=== PATIENT | male | born 1990 | race Caucasian/White ===

== ENCOUNTER 2020-05-24 06:08 | Emergency (ER) | payer OTHER ==
[~2020-05-24] VITALS: Ht 175.3 cm; Wt 97.5 kg
[2020-05-24 06:15] VITALS: BP 151/94
--- NOTE | 2020-05-24 06:19 | NUR ---
PT AMBULATED TO BED 3 WITH STEADY GAIT
--- NOTE | 2020-05-24 06:20 | NUR ---
29 Y/O MALE C/O 5-6 EPISODES OF EMESIS 1 HR AGO THAT WAS DARK BROWN IN COLOR; PT DENIES ANY TRAUMA OR EATING ANYTHING RED IN COLOR; PT STATE HAD A HAMBURGER FOR DINNER; DENIES N/V/D; SKIN IS PINK/WARM/DRY; AAOX4 WITH EVEN AND STEADY GAIT; HR EVEN AND REGULAR; PT DENIES ANY FEVER, CP, SOB, OR COUGH AT THIS TIME; PATIENT STATES PAIN OF 0/10 AT THIS TIME; VSS; PATIENT POSITIONED FOR COMFORT; HOB ELEVATED; BEDRAILS UP X1; BED DOWN AND LOCKED PMH: HTN/ACID REFLUX NKA
[2020-05-24] MEDS ORDERED: NACL 0.9% 1,000 ML IV ONE (06:45)
[2020-05-24] MEDS ORDERED: ONDANSETRON 4 MG/2 ML VIAL IVP ONE (06:45)
[2020-05-24] MEDS ORDERED: PANTOPRAZOLE 40 MG INJ VIAL IVP ONE (06:45)
--- NOTE | 2020-05-24 07:06 | NUR ---
RECEIVED REPORT FROM EYAL RESENDIZ FOR CONTINUITY OF CARE
--- NOTE | 2020-05-24 07:06 | NUR ---
Pt report given to ASTRID MYLES. Transfer of care at this time.
--- NOTE | 2020-05-24 07:07 | NUR ---
PT RESTING IN BED, SIDE RAIL X1
[2020-05-24] MEDS ORDERED: ALUMINUM HYD/MAG/SIMETHICONE 30 ML UDC PO ONE (07:20)
[2020-05-24 07:40] LABS: BASOPHILS % (AUTO) 0.7 % (0.0-2.0); EOSINOPHILS # (AUTO) 0.3 K/uL (0-0.4); EOSINOPHILS % (AUTO) 3.5 % (0.0-4.0); HEMATOCRIT 43.3 % (36-52); HEMOGLOBIN 14.7 g/dL (12.0-18.0); LYMPHOCYTES # (AUTO) 1.4 K/uL (2.0-11.5); LYMPHOCYTES % (AUTO) 18.2 % (20.5-51.1); MEAN CORPUSCULAR HEMOGLOBIN 31 pg (27-31); MEAN CORPUSCULAR HGB CONC 34 g/dL (33-37); MEAN CORPUSCULAR VOLUME 90.1 fL (80-94); MONOCYTES # (AUTO) 0.8 K/uL (0.8-1.0); MONOCYTES % (AUTO) 10.3 % (1.7-9.3); NEUTROPHILS # (AUTO) 5.1 K/uL (1.8-7.7); NEUTROPHILS % (AUTO) 67.3 % (42.2-75.2); PLATELET COUNT (AUTO) 315 K/uL (140-450); RED CELL DISTRIBUTION WIDTH 13.2 % (11.6-13.7); WHITE BLOOD COUNT (AUTO) 7.6 K/uL (4.8-10.8)
[2020-05-24 07:47] LABS: ANION GAP 14.4 (8-16); CARBON DIOXIDE 24.6 mmol/L (21-32); CREATININE 0.8 mg/dL (0.6-1.3)
[2020-05-24 07:53] LABS: ALBUMIN 3.4 g/dL (3.4-5.0); BILIRUBIN,DIRECT 0.1 mg/dL (0.0-0.3); TOTAL BILIRUBIN 0.2 mg/dL (0.0-1.0)
--- NOTE | 2020-05-24 08:15 | NUR ---
Pt provided with water for po challenge.
[2020-05-24 08:28] VITALS: BP 135/86
--- NOTE | 2020-05-24 08:29 | NUR ---
Patient discharged with v/s stable. Written and verbal after care instructions given and explained. Patient alert, oriented and verbalized understanding of instructions. Ambulatory with steady gait. All questions addressed prior to discharge. ID band removed. Patient advised to follow up with PMD. Rx of Protonix 40mg and Zofran ODT 4mg given. Patient educated on indication of medication including possible reaction and side effects. Opportunity to ask questions provided and answered.
== END 2020-05-24 08:29 | disposition home or self-care (01) ==
LOC: MED 06:08
DX: R11.2 Nausea with vomiting, unspecified (principal); I10 Essential (primary) hypertension
CPT/HCPCS: 36415; 80048; 80076; 85025; 93005; 96361; 96374; 96375; 99284; C9113; J2405; J7030

== ENCOUNTER 2020-09-01 22:27 | Emergency (ER) | payer OTHER ==
[~2020-09-01] VITALS: Ht 175.3 cm; Wt 98.9 kg
[2020-09-01 22:55] VITALS: BP 150/90
--- NOTE | 2020-09-01 22:58 | NUR ---
TO LOBBY A/W BED AMBULATORY
--- NOTE | 2020-09-02 00:45 | NUR ---
ASSESSED, TREATED, AND D/C BY ERMD, NO NURSING INTERVENTIONS NEEDED.
[2020-09-02 00:50] VITALS: BP 149/91
--- NOTE | 2020-09-02 00:50 | NUR ---
Patient discharged with v/s stable. Written and verbal after care instructions given and explained. Patient alert, oriented and verbalized understanding of instructions. Ambulatory with steady gait. All questions addressed prior to discharge. ID band removed. Patient advised to follow up with PMD. Rx of CLONIDINE HYDROCHLORIDE given. Patient educated on indication of medication including possible reaction and side effects. Opportunity to ask questions provided and answered.
== END 2020-09-02 00:50 | disposition home or self-care (01) ==
LOC: MED 22:27
DX: I10 Essential (primary) hypertension (principal)
CPT/HCPCS: 99283

== ENCOUNTER 2020-12-09 22:24 | Emergency (ER) | payer OTHER ==
[~2020-12-09] VITALS: Ht 175.3 cm; Wt 98.9 kg
[2020-12-09 22:27] VITALS: BP 136/76
--- NOTE | 2020-12-09 22:27 | NUR ---
TO BED AMBULATORY
[2020-12-09] MEDS ORDERED: IBUP-2213 PO (22:37)
[2020-12-09] MEDS ORDERED: KETOROLAC 60 MG/2 ML VIAL IM ONE (22:40)
--- NOTE | 2020-12-09 22:42 | NUR ---
PATIENT BIB SELF C/O 04/03 LEFT SIDE CHEST PAIN THAT RADIATES TO LEFT ARM AND LEFT SIDE OF NECK X 1 WEEK. PT DESCRIBES PAIN DULL AND CONSTANT. DENIES SOB. "IT HURTS WHEN I MOVE MY NECK IN CERTAIN POSITIONS". PAIN REPORTED BY PT UPON PALPATION TO LEFT CHEST WALL. PT DENIES ANY MEDICATIONS TO RELIEVE PAIN AT HOME. MED HX: HTN, GASTRITIS ALLX: NKA.
--- NOTE | 2020-12-09 22:43 | NUR ---
ERMD ASSESSING PATIENT AT BEDSIDE.
--- NOTE | 2020-12-09 22:46 | NUR ---
EKG ORDERED AND COMPLETED. NSR 71 NOTED. ERMD MADE AWARE.
[2020-12-09 23:02] VITALS: BP 136/76
== END 2020-12-09 23:02 | disposition home or self-care (01) ==
LOC: MED 22:24
DX: R07.89 Other chest pain (principal); K21.9 Gastro-esophageal reflux disease without esophagitis; I10 Essential (primary) hypertension; Z79.899 Other long term (current) drug therapy
CPT/HCPCS: 96372; 99283; J1885

== ENCOUNTER 2021-04-04 22:23 | Emergency (ER) | payer OTHER ==
[~2021-04-04] VITALS: Ht 175.3 cm; Wt 95.3 kg
[~2021-04-04 22:23] MED LIST: IBUP-2213 PO
[2021-04-04 22:32] VITALS: BP 141/89
--- NOTE | 2021-04-04 22:32 | NUR ---
TO BED AMBULATORY
--- NOTE | 2021-04-04 23:07 | NUR ---
Dr. Munoz examining patient.
--- NOTE | 2021-04-04 23:18 | NUR ---
PT RETURN FROM XRAY
--- NOTE | 2021-04-05 | NUR ---
Patient laying in bed, locked in lowest position x1 side rail up. Breathing even and unlabored, NAD will continue to monitor. Patient connected to monitor. VSS
[2021-04-05 01:38] VITALS: BP 122/83
--- NOTE | 2021-04-05 01:38 | NUR ---
Patient discharged with v/s stable. Written and verbal after care instructions given and explained. Patient verbalized understanding. Ambulatory with steady gait. All questions addressed prior to discharge. Advised to follow up with PMD.
== END 2021-04-05 01:38 | disposition home or self-care (01) ==
LOC: MED 22:23
DX: R07.9 Chest pain, unspecified (principal); L72.3 Sebaceous cyst
CPT/HCPCS: 71101; 99284